=== PATIENT | male | born 1975 ===

== ENCOUNTER 2020-02-08 10:01 | Emergency (ER) | payer SELFPAY ==
[2020-02-08] MEDS ORDERED: Tetan/Diph/Pertus SYR(Tdap)* 0.5 ML SYR(BOOSTRIX) use SYR contains LATEX IM ONE (10:08)
--- OUTSIDE RECORDS SUMMARY | 2020-02-08 10:08 | XMS REPORT | Summary of Care ---
:1975 Author Organization [facility] Address [address] [facility] [place] [address] Care Team Providers Name Role Phone Ayan Mata Primary Care Provider Reason for Visit Reason Comments Follow Up pt presents for follow up with medication Encounter Details Date Type Department Care Team Description 01/02/2020 Office Visit [facility] Ayan Mata MD Attention deficit hyperactivity disorder (ADHD), predominantly inattentive type (Primary Dx); Practice [address] [facility] Anxiety and depression; [address] [place] [address] [place] [address] [phone] Allergies No Known Allergiesdocumented as of this encounter (statuses as of 01/03/2020) Medications Medication Sig Dispensed Refills Start Date End Date Status ibuprofen (MOTRIN) 200 Take 200 mg by 0 Active MG Oral Tab mouth EVERY SIX HOURS NEEDED. lisinopril (PRINIVIL, Take 1 Tab by 180 Tab 3 02/13/2019 Active ZESTRIL) 10 MG Oral mouth TWICE TabIndications: Benign DAILY. hypertension Additional Information Patient taking differently: 10 mg Oral DAILY, Reported on 12/08/2019 2:44 PM trazodone (DESYREL) 50 Take 1-2 Tabs 60 Tab 3 05/28/2019 Active MG Oral TabIndications: by mouth EVERY Anxiety and depression BEDTIME. gabapentin (NEURONTIN) Take 1 Cap by 180 Cap 3 06/24/2019 Active 300 MG Oral mouth TWICE CapIndications: Low DAILY. back pain radiating to left leg Omeprazole 40 MG Oral Take 1 Cap by 30 Cap 5 12/08/2019 Active CAPSULE DELAYED RELEASE mouth DAILY. escitalopram (LEXAPRO) Take 1 Tab by 30 Tab 3 01/02/2020 Active 10 MG Oral mouth DAILY. TabIndications: Anxiety and depression ALPRAZolam (XANAX) 1 MG Take 1 Tab by 30 Tab 0 01/02/2020 Active Oral TabIndications: mouth THREE Anxiety and depression TIMES DAILY NEEDED (anxiety). Max Daily Amount: 3 mg. Lisdexamfetamine Take 1 Cap by 30 Cap 0 01/02/2020 Active Dimesylate (VYVANSE) 30 mouth DAILY. MG Oral Cap Max Daily Amount: 30 mg. ALPRAZolam (XANAX) 1 MG Take 1 Tab by 90 Tab 0 11/11/2019 Discontinued Oral TabIndications: mouth THREE 020 (Reorder) Anxiety and depression TIMES DAILY NEEDED (anxiety). Max Daily Amount: 3 mg. Lisdexamfetamine Take 1 Cap by 30 Cap 0 12/08/2019 Discontinued Dimesylate (VYVANSE) 30 mouth DAILY. 020 (Reorder) MG Oral Cap Max Daily Amount: 30 mg. documented as of this encounter (statuses as of 01/03/2020) Active Problems Problem Noted Date Attention deficit hyperactivity disorder (ADHD), predominantly inattentive type Gastroesophageal reflux disease without esophagitis 02/13/2019 Low back pain radiating to left leg 02/13/2019 Benign hypertension 02/13/2019 Anxiety 01/28/2014 documented as of this encounter (statuses as of 01/03/2020) Social History Tobacco Use Types Packs/Day Years Used Date Former Smoker Smokeless Tobacco: Never Used Alcohol Use Drinks/Week oz/Week Comments Yes 2 Shots of liquor 2.0 Sex Assigned at Date Recorded Not on file documented as of this encounter Last Filed Vital Signs Vital Sign Reading Time Taken Comments Blood Pressure 116/74 01/02/2020 2:59 PM EDT Pulse 84 01/02/2020 2:59 PM EDT Temperature - - Respiratory Rate - - Oxygen Saturation 97% 01/02/2020 2:59 PM EDT Inhaled Oxygen Concentration - - Weight 87.3 kg (192 lb 6.4 oz) 01/02/2020 2:59 PM EDT Height 177.8 cm (5' 10") 01/02/2020 2:59 PM EDT Body Mass Index 27.61 01/02/2020 2:59 PM EDT documented in this encounter Progress Notes Ayan Mata MD - 01/02/2020 2:20 PM EDT PATIENT: Yobany Dougherty : 1975 DATE OF SERVICE: 01/02/2020 CHIEF COMPLAINT: Chief Complaint Patient presents with ? Follow Up pt presents for follow up with medication Subjective HISTORY OF PRESENT ILLNESS: Yobany Dougherty is a 44-y.o. male. Last month put him on vyvanse for previously un diagnosis ADHD. He said it has made a big difference Has been less overwhelmed . The med works greatfirst half of day. 2nd half of day it works but not as well. Is out of system by dinner. Eating and sleeping well He is using xanax less but asks for refill. He was under the impression he was to go back on lexapro last visit too. I dnt recall that at all especially with the theory that his issues were ADHD related. He was on 15 mg of lexapro before Past Medical History: Diagnosis Date ? Anxiety ? Chronic back pain ? Hypertension No family history on file. Current Outpatient Medications Medication Sig ? ALPRAZolam (XANAX) 1 MG Oral Tab Take 1 Tab by mouth THREE TIMES DAILY NEEDED (anxiety). Max Daily Amount: 3 mg. ? escitalopram (LEXAPRO) 10 MG Oral Tab Take 1 Tab by mouth DAILY. ? gabapentin (NEURONTIN) 300 MG Oral Cap Take 1 Cap by mouth TWICE DAILY. ? ibuprofen (MOTRIN) 200 MG Oral Tab Take 200 mg by mouth EVERY SIX HOURS NEEDED. ? Lisdexamfetamine Dimesylate (VYVANSE) 30 MG Oral Cap Take 1 Cap by mouth DAILY. Max Daily Amount: 30 mg. ? lisinopril (PRINIVIL, ZESTRIL) 10 MG Oral Tab Take 1 Tab by mouth TWICE DAILY. (Patient taking differently: Take 10 mg by mouth DAILY.) ? Omeprazole 40 MG Oral CAPSULE DELAYED RELEASE Take 1 Cap by mouth DAILY. ? trazodone (DESYREL) 50 MG Oral Tab Take 1-2 Tabs by mouth EVERY BEDTIME. No current facility-administered medications for this visit. No Known Allergies Social History Socioeconomic History ? Marital status: Spouse name: Not on file ? Number of children: Not on file ? Years of education: Not on file ? Highest education level: Not on file Occupational History ? Not on file Social Needs ? Financial resource strain: Not on file ? Food insecurity Worry: Not on file Inability: Not on file ? Transportation needs Medical: Not on file Non-medical: Not on file Tobacco Use ? Smoking status: Former Smoker ? Smokeless tobacco: Never Used Substance and Sexual Activity ? Alcohol use: Yes Alcohol/week: 2.0 standard drinks Types: 2 Shots of liquor per week ? Drug use: Yes Types: Marijuana ? Sexual activity: Not on file Lifestyle ? Physical activity Days per week: Not on file Minutes per session: Not on file ? Stress: Not on file Relationships ? Social connections Talks on phone: Not on file Gets together: Not on file Attends hinduism service: Not on file Active member of club or organization: Not on file Attends meetings of clubs or organizations: Not on file Relationship status: Not on file ? Intimate partner violence Fear of current or ex partner: Not on file Emotionally abused: Not on file Physically abused: Not on file Forced sexual activity: Not on file Other Topics Concern ? Not on file Social History Narrative ? Not on file REVIEW OF SYSTEMS: ROS Objective PHYSICAL EXAM: VITALS: BP 116/74 (BP Location: Left arm, Patient Position: Sitting) | Pulse 84 | Ht 5' 10" (1.778 m) | Wt 192 lb 6.4 oz (87.3 kg) | SpO2 97% | BMI 27.61 kg/m Body mass index is 27.61 kg/m. Physical Exam Vitals signs reviewed. Constitutional: Appearance: He is not ill-appearing. Cardiovascular: Rate and Rhythm: Normal rate and regular rhythm. Pulmonary: Effort: Pulmonary effort is normal. No respiratory distress. Psychiatric: Comments: Dress and hygiene good Good eye contact Thoughts and speech normal Affect Appropriate Mood normal ASSESSMENT / IMPRESSION: ICD-9-CM ICD-10-CM 1. Attention deficit hyperactivity disorder (ADHD), predominantly inattentive type , He not want togo up on the meds which is ok with me 314.00 F90.0 2. Anxiety and depression use the xanax less to not at all althugh I did a refill today. I also dontthink needs lexapro but will try it but only 10 mg a day 300.00 F41.9 escitalopram (LEXAPRO) 10 MG Oral Tab 311 F32.9 ALPRAZolam (XANAX) 1 MG Oral Tab 3. Benign hypertension stable despite stimulant 401.1 I10 Plan Author: Ayan Mata MD 01/03/2020 14:08 documented in this encounter Plan of Treatment Date Type Specialty Care Team Description 05/07/2020 Office Visit Family Practice Ayan Mata MD [address] [place] [id number] [phone] Health Maintenance Due Date Last Done Comments DTaP/Tdap/Td Vaccines (1 - 1988 Tdap) DIABETES SCREENING 1995 LIPID DISORDER SCREENING 1995 DEPRESSION SCREENING 05/28/2020 05/28/2019, 05/28/2019 INFLUENZA VACCINE (#1) 2020 Postponed from 06/22/2019 (Patient refused) HEPATITIS A IMMUNIZATION Aged Out No longer eligible based SERIES on patient's age to complete this topic HPV IMMUNIZATION SERIES Aged Out No longer eligible based on patient's age to complete this topic MENINGOCOCCAL VACCINE IMM Aged Out No longer eligible based on patient's age to complete this topic PNEUMOCOCCAL 0-64 YRS Aged Out No longer eligible based on patient's age to complete this topic documented as of this encounter Goals Goal Patient Goal Associated Recent Patient-Stated? Author Type Problems Progress Blood Pressure Blood Pressure 116/74 No Omar, < 140/90 (01/02/2020 JENARO Cisse 2:59 PM EDT) Note: This is an individualized treatment (blood pressure) goal for Yobany Dougherty: Displayed above (on the left) is your goal for blood pressure control. Your most recent blood pressure is also shown above, on the right. You should try to achieve blood pressures that are lower than your goal listed above (on the left). Depression screen Depression 27 (05/28/2019 1:40 PM No Tanna Nelson FNP (PHQ-9) total score < 5 EDT) Note: This is an individualized treatment (depression) goal for Yobany Dougherty: Displayed above is your goal for a depression screening (PHQ-9) score that would indicate good control of your depression. Keep a regular sleep schedule Lifestyle No Tanna Nelson FNP Note: This is an individualized lifestyle goal for Yobany Dougherty: Please maintain a regular sleep schedule. This may help with some symptoms of depression. Take all prescribed medications as Self-management No Tanna Nelson FNP directed Note: This is an individualized self-management goal for Yobany Dougherty: Please take all prescribed medications as directed. 1. Do not skip doses. If you cannot afford your medications, talk with your doctor. 2. Use a pill reminder system such as a pill box if needed. Your pharmacist can help you with this. 3. Contact your Pharmacy 5 days before your medication runs out. If you cannot take your medications for any reasons, talk with your doctor. 4. Please bring all of your medication bottles and inhalers (or a list of all your medications/inhalers) with you to every visit. Potential barriers to meeting all of your care plan goals will continue to be addressed on an ongoing basis. documented as of this encounter Results Not on filedocumented in this encounter Visit Diagnoses Diagnosis Anxiety and depression Dysthymic disorder Benign hypertension Essential hypertension, benign Attention deficit hyperactivity disorder (ADHD), predominantly inattentive type documented in this encounter Guarantor Name Account Type Relation to Date of Phone Billing Patient Address Yobany Dougherty Personal/Family 1975 [address] [facility] (Home) [place], [place] [phone] [id number] (Work) documented as of this encounter
[2020-02-08 10:18] VITALS: BP 143/83
--- NOTE | 2020-02-08 10:39 | UC ---
UC General HPI - HPI Summary HPI Summary: Stepped on nail, through workboot yesterday. Does not think fb in foot. Soaked it in warm hot water last night. But tet booster >5 yrs. No current redness / pain. No drainage. Denies pain. Works on his feet a lot. - History of Current Complaint Chief Complaint: UCLaceration Stated Complaint: TETNUS NEEDED Time Seen by Provider: 02/08/20 10:07 Hx Obtained From: Patient Pain Intensity: 0 - Allergy/Home Medications Allergies/Adverse Reactions: Allergies Allergy/AdvReac Type Severity Reaction Status Date / Time No Known Allergies Allergy Verified 02/08/20 10:15 Home Medications: Home Medications ALPRAZolam [Alprazolam] 0.5 tab PO QPM PRN 02/08/20 [History Confirmed 02/08/20] Blood Pressure Medication 1 tab PO EVERY OTHER DAY 02/08/20 [History] Escitalopram Oxalate [Lexapro 10 mg] 1 tab PO DAILY 02/08/20 [History Confirmed 02/08/20] Gabapentin 1 - 2 tab PO EVERY OTHER DAY PRN 02/08/20 [History Confirmed 02/08/20 ] Lisdexamfetamine Dimesylate [Vyvanse] 1 tab PO DAILY 02/08/20 [History Confirmed 02/08/20] Omeprazole 1 tab PO DAILY 02/08/20 [History Confirmed 02/08/20] Sulfamethox/Trimethoprim DS* [Bactrim DS 800/160 TAB*] 1 tab PO BID #10 tab [Rx] Trazodone HCl 1 tab PO QPM PRN 02/08/20 [History Confirmed 02/08/20] PMH/Surg Hx/FS Hx/Imm Hx Previously Healthy: Yes - Surgical History Surgical History: Yes Surgery Procedure, Year, and Place: back surgery 10 yrs ago - Family History Known Family History: Positive: Unknown - Social History Alcohol Use: Weekly Substance Use Type: Marijuana Smoking Status (MU): Never Smoked Tobacco Review of Systems All Other Systems Reviewed And Are Negative: Yes Constitutional: Positive: Negative Skin: Positive: Other - see hpi Eyes: Positive: Negative ENT: Positive: Negative Respiratory: Positive: Negative Cardiovascular: Positive: Negative Gastrointestinal: Positive: Negative Genitourinary: Positive: Negative Motor: Positive: Other - see hpi Musculoskeletal: Positive: Other: - see hpi Neurological/Mental Status: Positive: Negative Psychological: Positive: Negative Is Patient Immunocompromised?: No Physical Exam Triage Information Reviewed: Yes Appearance: Well-Appearing, Well-Nourished Vital Signs: Initial Vital Signs Temp 97.9 F 02/08/20 10:08 Pulse 83 02/08/20 10:08 Resp 18 02/08/20 10:08 BP 143/83 02/08/20 10:08 Pulse Ox 99 02/08/20 10:08 Vital Signs Reviewed: Yes Eye Exam: Normal ENT Exam: Normal - no c/o Neck exam: Normal - no acute c/o Respiratory Exam: Normal - rr normal, no dyspnea, no tachypnea Cardiovascular Exam: Normal - hr normal, distal cap refill is good foot warm to touch Abdominal Exam: Normal - sitting up, no c/o grossly benign Musculoskeletal Exam: Other - R plantar lat foot, just prox to 5th mt site + puncture site. No drainage. Not red / hot to touch. Very mild focal swelling , nonfluctuant. Neurological Exam: Normal - grossly nonfocal Psychological Exam: Normal - nad Skin Exam: Normal - see foot o/w nad Course/Dx - Course Course Of Treatment: Reviewed coa / tx plan. Questions as posed answered to the best of my ability. Consider xray, but doubt retained fb. Pt will seek medical attention if worse / new problem. - Diagnoses Provider Diagnosis: Puncture wound of foot Discharge ED - Sign-Out/Discharge Documenting (check all that apply): Patient Departure All imaging exams completed and their final reports reviewed: No Studies - Discharge Plan Condition: Stable Disposition: HOME Prescriptions: Sulfamethox/Trimethoprim DS* [Bactrim DS 800/160 TAB*] 1 tab PO BID #10 tab Patient Education Materials: Diphtheria/Acellular Pertussis/Tetanus Booster Vaccine (By injection), Puncture Wound (DC) Referrals: Ayan Mata MD [Primary Care Provider] - Additional Instructions: Hydrate. Protect the foot wound site - minimizepressure / shearing forces. Please seek medical attention for worse or new problems. - Billing Disposition and Condition Condition: STABLE Disposition: Home
== END 2020-02-08 10:56 | disposition home or self-care (01) ==
LOC: UCEAST 10:01
DX: S91.331A Puncture wound without foreign body, right foot, initial encounter (principal); W45.0XXA Nail entering through skin, initial encounter; Y92.9 Unspecified place or not applicable; Z23 Encounter for immunization
CPT/HCPCS: 90471; 90715; 99202; G0463